=== PATIENT | female | born 1955 | race Caucasian/White ===

== ENCOUNTER 2021-09-21 06:59 | Day surgery (SDC) | payer MEDICARE, OTHER ==
[2021-09-21] MEDS ORDERED: Glycopyrrolate 0.2 MG/ML SDV IVPUSH ONE (07:00)
[2021-09-21] MEDS ORDERED: Sodium Chloride 0.9% 10 ML Syringe FLUSH PRN (07:00)
[2021-09-21] MEDS: Lactated Ringers 1,000 ML IV SCH (07:29)
[2021-09-21] MEDS ORDERED: Lidocaine 2% 5 ML SDV ONE (08:19)
[2021-09-21] MEDS ORDERED: Propofol 200 MG/20 ML SDV ONE (08:19)
[2021-09-21] MEDS ORDERED: Midazolam 1 MG/ML 2 ML SDV ONE (08:19)
[2021-09-21] MEDS ORDERED: EPINEPHrine 1:10,000 1 MG/10 ML Syringe ONE (08:30)
[2021-09-21] MEDS: EPINEPHrine 1:10,000 1 MG/10 ML Syringe ONE (08:39)
[2021-09-21] MEDS: Ondansetron 4 MG Tab.DIS PO ONE (10:04)
== END 2021-09-21 10:13 | disposition home or self-care (01) ==
LOC: KA.SDS 06:59
PROVIDERS: ATTEND Family Medicine
DX: K21.00 Gastro-esophageal reflux disease with esophagitis, without bleeding (principal); K27.9 Peptic ulcer, site unspecified, unspecified as acute or chronic, without hemorrhage or perforation; F41.9 Anxiety disorder, unspecified; F32.A Depression, unspecified; Z79.899 Other long term (current) drug therapy; Z88.0 Allergy status to penicillin; Z88.5 Allergy status to narcotic agent; Z88.1 Allergy status to other antibiotic agents
CPT/HCPCS: 00731; 93005; J0171; J2250; J2704; J3490; J7120

== ENCOUNTER 2022-03-29 16:20 | Emergency (ER) | payer MEDICARE, OTHER ==
[2022-03-29] MEDS ORDERED: traMADol 50 MG Tab PO ONE (16:21)
[2022-03-29] MEDS ORDERED: methylPREDNISolone Sodium Succinate 125 MG/2 ML SDV IV ONE (17:30)
[2022-03-29] MEDS ORDERED: LORazepam 2 MG/ML SDV IV ONE (17:35)
[2022-03-29] MEDS ORDERED: Ketorolac 30 MG/ML SDV IVPUSH ONE (17:38)
== END 2022-03-29 18:50 | disposition home or self-care (01) ==
LOC: KA.ED 16:20
DX: M46.1 Sacroiliitis, not elsewhere classified (principal)
CPT/HCPCS: 72100; 72170; 96374; 96375; 99283; A9270; J1885; J2060; J2930